=== PATIENT | male | born 1995 | race Caucasian/White ===

== ENCOUNTER 2021-12-31 09:27 | Emergency (ER) | payer OTHER ==
[~2021-12-31] VITALS: Ht 170.2 cm; Wt 64.9 kg
[2021-12-31] MEDS ORDERED: BACTRIM 160MG/800MG DS TAB PO ONE (11:15)
[2021-12-31] MEDS ORDERED: ACETAMINOPHEN 500 MG TAB PO ONE (11:15)
[2021-12-31] MEDS ORDERED: IBUPROFEN 400MG TAB PO ONE (11:15)
[2021-12-31] MEDS ORDERED: LIDOCAINE 1% MDV 20ML VIAL SC ONE (11:15)
[2021-12-31 11:54] LABS: BASO # 0.1 10^3/uL (0.0-0.2); BASO % 0.4 % (0.0-1.0); EOS # 0.1 10^3/uL (0.0-0.5); EOS % 0.8 % (0.0-3.0); HEMATOCRIT 48.3 % (42.0-52.0); LYMPH # 2.2 10^3/uL (1.5-5.0); LYMPH % 12.5 % (24.0-44.0); MEAN CORPUSCULAR HEMOGLOBIN 29.8 pg (27.0-33.0); MEAN CORPUSCULAR HGB CONC 33.1 g/dl (32.0-36.5); MEAN CORPUSCULAR VOLUME 89.9 fl (80.0-96.0); MONO % 8.8 % (2.0-8.0); NEUTROPHILS # 13.5 10^3/uL (1.5-8.5); NEUTROPHILS % 77.1 % (36.0-66.0); PLATELET COUNT, AUTOMATED 233 10^3/uL (150-450); RED BLOOD COUNT 5.37 10^6/uL (4.30-6.10); WHITE BLOOD COUNT 17.5 10^3/uL (4.0-10.0)
[2021-12-31 12:17] LABS: ALBUMIN 3.6 GM/DL (3.2-5.2); BILIRUBIN,DIRECT 0.2 MG/DL (0.0-0.2); BILIRUBIN,TOTAL 0.5 MG/DL (0.2-1.0); TOTAL PROTEIN 7.9 GM/DL (6.4-8.2)
[2021-12-31 12:29] LABS: MONO # 1.5 10^3/uL (0.0-0.8)
[2021-12-31] MEDS ORDERED: cefTRIAXone SOD 500 MG in D5W MINI-BAG PLUS 50 ML IV ONE (12:45)
[2021-12-31] MEDS ORDERED: DOXY-443 PO (12:55)
[2021-12-31 13:31] LABS: APPEARANCE, URINE HAZY (CLEAR); BACTERIA, URINE AUTO NEGATIVE (NEGATIVE); BILIRUBIN, URINE AUTO NEGATIVE (NEGATIVE); BLOOD, URINE BLOOD NEGATIVE (NEGATIVE); COLOR, URINE AMBER (YELLOW); GLUCOSE, URINE (UA) AUTO NEGATIVE (NEGATIVE); KETONE, URINE AUTO 1+ mg/dL (NEGATIVE); LEUKOCYTE ESTERASE, URINE AUTO NEGATIVE (NEGATIVE); MUCUS, URINE LARGE (NEGATIVE); NITRITE, URINE AUTO NEGATIVE (NEGATIVE); PROTEIN, URINE AUTO 1+ mg/dL (NEGATIVE); RBC, URINE AUTO 4 /HPF (0-3); SPECIFIC GRAVITY URINE AUTO 1.031 (1.002-1.035); SQUAMOUS EPITHELIAL CELL UR AU 0 /HPF (0-6); UROBILINOGEN, URINE AUTO 0.2 mg/dL (0.0-2.0); WBC, URINE AUTO 3 /HPF (0-3)
[2021-12-31 14:06] LABS: MONO REFLEX EBV COMP NEGATIVE (NEGATIVE)
[2021-12-31 14:56] LABS: GC DNA AMPLIFICATION NEGATIVE (NEGATIVE)
[2021-12-31 15:03] LABS: HIV 1&2 SCREEN CENTAUR NEGATIVE (NEGATIVE)
[2021-12-31 15:07] VITALS: BP 110/60
[2022-01-03 16:08] LABS: EBV VIRAL CAPSID AG IgG 45.5 U/mL (0.0-17.9); EBV VIRAL CAPSID AG IgM <36.0 U/mL (0.0-35.9)
== END 2021-12-31 15:18 | disposition home or self-care (01) ==
LOC: M ED 09:27
DX: R59.1 Generalized enlarged lymph nodes (principal); R10.30 Lower abdominal pain, unspecified
CPT/HCPCS: 36415; 76857; 80047; 80076; 81001; 83605; 85025; 86308; 86664; 86665; 86780; 87389; 87661; 87810; 87850; 96365; 96366; 99284; J0696

== ENCOUNTER 2022-01-01 13:38 | Emergency (ER) | payer OTHER ==
[~2022-01-01] VITALS: Ht 170.2 cm; Wt 65.9 kg
[~2022-01-01 13:38] MED LIST: DOXY-443 PO
[2022-01-01 13:39] VITALS: BP 117/69
== END 2022-01-01 17:33 | disposition left against medical advice (07) ==
LOC: M ED 13:38
DX: Z53.21 Procedure and treatment not carried out due to patient leaving prior to being seen by health care provider (principal)